=== PATIENT | female | born 1940 | race African-American/Black ===

== ENCOUNTER 2017-01-01 21:22 | Emergency (ER) | payer OTHER ==
[~2017-01-01] VITALS: Ht 162.6 cm; Wt 65.8 kg
--- NOTE | ~2017-01-01 | EKG ---
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 : 1940 Requested By: Alexandru Randall Order Number: [id number] MD: Anjum Interiano Measurements Intervals [place] Rate: 75 P: 60 RI: 141 QRS: 21 QRSD: 107 T: 47 QT: 393 QTc: 439 Interpretive Statements Sinus rhythm RSR' in V1 or V2, right VCD Artifact in lead(s) I,II,III,aVR,aVL,aVF Compared to ECG 01/01/2017 21:24:28 Left bundle branch block is no longer present Premature ventricular complexes are no longer present Electronically Signed On 01-03-2017 7:16:32 CDT by Anjum Interiano [email or web address] <ELECTRONICALLY SIGNED> By: Anjum Interiano MD, [facility] 01/03/17 0716 41 41 Anjum Interiano MD, [facility] /EPI
--- NOTE | ~2017-01-01 | EKG ---
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 : 1940 Requested By: Alexandru Randall Order Number: [id number] MD: Aramis Shay Measurements Intervals [place] Rate: 90 P: 80 UT: 132 QRS: -13 QRSD: 136 T: 60 QT: 403 QTc: 493 Interpretive Statements Sinus rhythm Multiple ventricular premature complexes Biatrial enlargement Left bundle branch block Baseline wander in lead(s) V2 No previous ECG available for comparison Electronically Signed On 01-02-2017 14:04:44 CDT by Aramis Shay [email or web address] <ELECTRONICALLY SIGNED> By: Aramis Shay MD 01/02/17 1404 23 23 Aramis Shay MD /MICHAEL
[2017-01-01] MEDS ORDERED: CATAPRES0.2 MG PO (21:25)
[2017-01-01] MEDS ORDERED: COZAAR 50 MG TA50 M2 PO (21:26)
[2017-01-01] MEDS ORDERED: ESTRADIOL 1 MG T1 M1 PO (21:26)
[2017-01-01 21:59] LABS: ABSOLUTE NEUTROPHILS 3.7 thou/uL (1.4-8.2); BASOPHILS 0.4 % (0.0-2.0); EOSINOPHILS 2.4 % (0.0-3.0); HEMATOCRIT 38.1 % (37.0-47.0); HEMOGLOBIN 13.2 gm/dL (12.0-15.0); LYMPHOCYTES 28.3 % (24.0-44.0); MCH 29.4 pg (26.0-34.0); MCHC 34.7 g/dL (28.0-37.0); MCV 84.8 fL (80.0-100.0); MONOCYTES 8.3 % (1.0-8.0); PLATELET COUNT 250 thou/uL (150-400); POLYS 60.6 % (36.0-66.0); RBC 4.49 mil/uL (4.20-5.00); RDW 14.3 % (10.5-14.5); WBC 6.1 thou/uL (4.0-11.0)
[2017-01-01 22:01] LABS: MANUAL DIFF NO
[2017-01-01 22:06] LABS: ANION GAP 4 mmol/L (7-16); BUN 20 mg/dL (7-18); CALCIUM 9.1 mg/dL (8.5-10.1); CHLORIDE 104 mmol/L (98-107); CO2 29 mmol/L (21-32); GLUCOSE 106 mg/dL (74-106); POTASSIUM 3.8 mmol/L (3.5-5.1); SODIUM 137 mmol/L (136-145)
[2017-01-01 22:14] LABS: TROPONIN-I < 0.04 ng/mL (<0.04-0.07)
[2017-01-01 23:20] VITALS: BP 152/65
== END 2017-01-01 23:21 | disposition home or self-care (01) ==
LOC: ER 21:22
PROVIDERS: Nurse Practitioner
DX: I10 Essential (primary) hypertension (principal); Z90.710 Acquired absence of both cervix and uterus

== ENCOUNTER → 2017-04-06 | Outpatient (CLI) | payer OTHER ==
[~2017-04-06] MED LIST: CATAPRES0.2 MG PO; COZAAR 50 MG TA50 M2 PO; ESTRADIOL 1 MG T1 M1 PO; HYDRALAZINE 2525 MG PO; METOPROLOL TART25 MG PO; XANAX 0.5 MG0.5 MG PO
--- NOTE | ~2017-04-06 | 2DMMODE ---
[facility] [address] [place] [address] 2 D/M-MODE ECHOCARDIOGRAM Name: ESAU PINEDO Room #: REG Veronica#: [id number] Admission: 04/06/17 Attend Phys: Peter Wilkins Discharge: Date of : 40 Date of Service: 04/06/17 0854 Report #: [id number] THIS REPORT FOR: //name// APPROVED REPORT Study performed: 04/06/2017 08:13:08 EXAM: Comprehensive 2D, Doppler, and color-flow Echocardiogram Patient Location: Out-Patient Room #: Echo lab Status: routine BSA: 1.69 HR: 61 bpm BP: 136/78 mmHg Other Information Study Quality: Good Indications Palpitations Hypertension/HDD 2D Dimensions RVDd: 37.65 mm LVEF(%): 57.52 (>50%) IVSd: 7.11 (7-11mm) LVOT Diam: 18.55 (18-24mm) LVDd: 39.50 mm PWd: 8.13 (7-11mm) Ascending Ao: 27.24 (22-36mm) LVDs: 27.73 (25-40mm) Aortic Root: 23.66 mm IVC: 17.00 mm Farooq's LVEF: 57.52 % Volumes Left Atrial Volume (Systole) Single Plane 4CH: 27.79 mL Single Plane 2CH: 51.71 mL LA ESV Index: 25.00 mL/m2 Aortic Valve AoV Peak Lex.: 1.46 m/s AO Peak Gr.: 8.54 mmHg LVOT Max P.68 mmHg LVOT Max V: 1.08 m/s VLAD Vmax: 2.00 cm2 Mitral Valve E/A Ratio: 1.1 MV Decel. Time: 224.84 ms [facility] [place] [address] 2 D/M-MODE ECHOCARDIOGRAM Name: ESAU PINEDO Room #: [id number] Admission: 04/06/17 Attend Phys: Peter Wilkins Discharge: Date of : 40 Date of Service: 04/06/17 0854 Report #: [id number] MV E Max Lex.: 1.00 m/s MV A Lex.: 0.94 m/s MV PHT: 65.20 ms IVRT: 83.04 ms Pulmonary Valve PV Peak Lex.: 0.93 m/s PV Peak Gr.: 3.50 mmHg Pulmonary Vein P Vein S: 0.55 m/s P Vein A: 0.28 m/s P Vein D: 0.38 m/s P Vein A Dur.: 110.7 msec P Vein S/D Ratio: 1.45 Tricuspid Valve TR Peak Lex.: 3.05 m/s TR Peak Gr.: 37.30 mmHg PA Pressure: 42.00 mmHg Left Ventricle The left ventricle is normal size. There is normal LV segmental wall motion. There is normal left ventricular wall thickness. The left ventricular systolic function is normal. The left ventricular ejection fraction is within the normal range. LVEF is 55-60%. Grade II - pseudonormal filling dynamics. Right Ventricle The right ventricle is normal size. The right ventricular systolic function is normal. Atria The left atrium size is normal. The right atrium size is normal. Aortic Valve The aortic valve is normal in structure. No aortic regurgitation is present. There is no aortic valvular stenosis. Mitral Valve The mitral valve is normal in structure. Mild mitral regurgitation. No evidence of mitral valve stenosis. Tricuspid Valve The tricuspid valve is normal in structure. There is mild tricuspid regurgitation. The right atrial pressure is estimated at 42 mmHg. Pulmonic Valve [address] [address] 2 D/M-MODE ECHOCARDIOGRAM Name: ESAU PINEDOE Room #: REG [facility]#: [id number] Admission: 04/06/17 Attend Phys: Peter Wilkins Discharge: Date of : 40 Date of Service: 04/06/17 0854 Report #: [id number] The pulmonary valve is normal in structure. There is no pulmonic valvular regurgitation. Great Vessels The aortic root is normal in size. IVC is normal in size and collapses >50% with inspiration. Pericardium There is no pericardial effusion. <Conclusion> The left ventricular systolic function is normal. There is normal LV segmental wall motion. LVEF is 55-60%. Grade II diastolic dysfunction The aortic valve is normal in structure. No aortic valvular stenosis or insufficiency The mitral valve is normal in structure. Mild mitral regurgitation. There is mild tricuspid regurgitation. The right atrial pressure is estimated at 42 mmHg. There is no pericardial effusion. <ELECTRONICALLY SIGNED> By: Anjum Interiano MD, FACC 04/06/1754 3 3 Anjum Interiano MD, FACC /INF
== END ==
LOC: NUC 07:37
DX: I08.1 Rheumatic disorders of both mitral and tricuspid valves (principal); I10 Essential (primary) hypertension; I44.7 Left bundle-branch block, unspecified; Z87.898 Personal history of other specified conditions

== ENCOUNTER → 2019-08-23 | Outpatient (CLI) | payer OTHER | LOC: SJCVC 10:43 | PROVIDERS: ATTEND Internal Medicine | DX: I10 Essential (primary) hypertension (principal); F41.9 Anxiety disorder, unspecified; G47.00 Insomnia, unspecified; R00.2 Palpitations; E78.5 Hyperlipidemia, unspecified; M19.90 Unspecified osteoarthritis, unspecified site; Z82.49 Family history of ischemic heart disease and other diseases of the circulatory system; Z79.899 Other long term (current) drug therapy ==

== ENCOUNTER → 2019-09-30 | Outpatient (CLI) | payer OTHER | LOC: SJCVC 10:36 | PROVIDERS: ATTEND Internal Medicine | DX: R06.09 Other forms of dyspnea (principal); I10 Essential (primary) hypertension; E78.5 Hyperlipidemia, unspecified; M19.90 Unspecified osteoarthritis, unspecified site; Z79.899 Other long term (current) drug therapy; Z82.49 Family history of ischemic heart disease and other diseases of the circulatory system ==

== ENCOUNTER → 2019-10-07 | Outpatient (CLI) | payer OTHER | LOC: SJCVCIMAG 10:24 | PROVIDERS: ATTEND Internal Medicine | DX: I08.1 Rheumatic disorders of both mitral and tricuspid valves (principal); I10 Essential (primary) hypertension; E78.5 Hyperlipidemia, unspecified ==

== ENCOUNTER → 2019-10-17 | Outpatient (CLI) | payer OTHER | LOC: SJCVCIMAG 11:01 | PROVIDERS: ATTEND Internal Medicine | DX: R06.00 Dyspnea, unspecified (principal); R42 Dizziness and giddiness; R06.02 Shortness of breath; E78.5 Hyperlipidemia, unspecified; I10 Essential (primary) hypertension; Z79.899 Other long term (current) drug therapy ==

== ENCOUNTER → 2019-10-29 | Outpatient (CLI) | payer OTHER | LOC: SJCVC 10:36 | DX: R06.09 Other forms of dyspnea (principal); R53.83 Other fatigue; I10 Essential (primary) hypertension; R51 Headache; Z79.899 Other long term (current) drug therapy ==

== ENCOUNTER → 2019-11-19 | Outpatient (CLI) | payer OTHER | LOC: SJCVC 16:31 | PROVIDERS: ATTEND Internal Medicine | DX: R07.9 Chest pain, unspecified (principal); R06.09 Other forms of dyspnea; I10 Essential (primary) hypertension; E78.5 Hyperlipidemia, unspecified; G47.00 Insomnia, unspecified; Z79.899 Other long term (current) drug therapy ==

== ENCOUNTER → 2020-07-21 | Outpatient (CLI) | payer OTHER ==
[~2020-07-21] MED LIST changes: +ADALAT CC30 MG PO; +IMDUR 30 MG TAB30 M1 PO; +ORADENT 0.1% DEN5 G1 TOP; +TOPROL XL25 MG PO; +ZOCOR40 MG PO
== END ==
LOC: SJCVC 10:03
PROVIDERS: ATTEND Internal Medicine
DX: R07.9 Chest pain, unspecified (principal); I10 Essential (primary) hypertension; R00.2 Palpitations; E78.5 Hyperlipidemia, unspecified; Z79.899 Other long term (current) drug therapy; F41.9 Anxiety disorder, unspecified; R51.9 Headache, unspecified; R42 Dizziness and giddiness; M19.90 Unspecified osteoarthritis, unspecified site

== ENCOUNTER → 2020-07-29 | Outpatient (CLI) | payer OTHER ==
[~2020-07-29] VITALS: Ht 162.6 cm; Wt 68.0 kg
[2020-07-29 10:21] VITALS: BP 132/56
[2020-07-29 11:00] LABS: ABSOLUTE NEUTROPHILS 1.6 thou/uL (1.4-8.2); BASOPHILS 0.4 % (0.0-2.0); EOSINOPHILS 2.1 % (0.0-3.0); HEMATOCRIT 37.8 % (37.0-47.0); HEMOGLOBIN 12.6 gm/dL (12.0-15.0); LYMPHOCYTES 37.5 % (24.0-44.0); MCH 29.7 pg (26.0-34.0); MCHC 33.5 g/dL (28.0-37.0); MCV 88.7 fL (80.0-100.0); MONOCYTES 13.4 % (1.0-8.0); PLATELET COUNT 227 thou/uL (150-400); POLYS 46.6 % (36.0-66.0); RBC 4.26 mil/uL (4.20-5.00); RDW 14.1 % (10.5-14.5); WBC 3.5 thou/uL (4.0-11.0)
[2020-07-29 11:04] LABS: CALCIUM 8.8 mg/dL (8.5-10.1); POTASSIUM 4.1 mmol/L (3.5-5.1)
--- NOTE | 2020-08-05 22:53 | CATHLAB ---
[facility] [place] [address] [place] [address] INVASIVE PROCEDURE REPORT Name: ESAU PINEDO Room #: REG GAURAV SanchezTamyErickaTamy#: [id number] Admission: 07/29/20 Attend Phys: Peter Spears Discharge: Date of : 40 Report #: [id number] THIS REPORT FOR: cc: Robbin Griffin MD, Michael D. MD Lammoglia, Francisco J. MD ~ APPROVED REPORT Study performed: 07/29/2020 11:01:59 Patient Details Patient Status: Out-Patient Room #: The patient is a 80 year-old female Event Personnel Peter Spears Cut Out And Marking Machine Operator, Sharon Key RN RN, Nik Gutierrez RTR Kristal Rosado Nancy RTR, PROCEDURES NURSE Monitor Procedures Performed Art Access - R femoral artery* Left Heart Cath w/or w/o Coronaries [id number] [facility] [address] Initial Mod Sed Same Phys/QHP Gr 906486 Hemostasis with Manual pressure 07570 Mod Sed Same Phys/QHP 957641, supervision of conscous sedation Indication Positive stress test Procedure Narrative The Right Groin^ was infiltrated with 1% Lidocaine subcutaneous anesthesia. A PINNACLE 4FR Sheath #[id number] sheath was inserted into the RFA^. Coronary angiography was performed using coronary diagnostic catheters. The right coronary system was accessed and visualized with a JR4 catheter. The left coronary system was accessed and visualized with a JL4 catheter. The left ventricle was accessed and visualized with a ANGLED PIGTAIL catheter. Left ventricular/Aortic Valve gradient assessed via catheter pullback. Hemostasis was obtained with manual pressure following sheath removal without any complications. The patient tolerated the procedure well and there were no complications associated with the procedure. There was no hematoma. Intraoperative Conscious Sedation Sedation start time: 11:27 Case end Time: [facility] [address] [place] [address] INVASIVE PROCEDURE REPORT Name: ESAU PINEDO Room #: REG TRE Martin#: [id number] Admission: 07/29/20 Attend Phys: Peter Wilkins Discharge: Date of : 40 Report #: [id number] 11:56 Versed 2 mg Fluoro Time: 2.90 minutes Dose: DAP 2331.00 cGycm2 588 mGy Contrast Type and Amount: Omnipaque 30 ml Coronary Angiography The patient's coronary anatomy is right dominant. Diagnostic Cath Left Main Moderate caliber vessel of normal origin bifurcates into left anterior descending and left circumflex arteries. The is a proximal tapering but no flow limiting lesions. LAD Moderate caliber type III vessel proceeding in the anterior interventricular sulcus giving rise to septal and diagonal branches.there are mild luminal irregularities but no high grade lesions.there is an eccentric lesion in the mid portion that appears to be 30-40% Diagonal 1 small caliber vessel coursing along the anterolateral wall of the left ventricle free of high grade lesions Diagonal 2 small insignificant caliber vessel Circumflex large caliber nondominant vessel which proceeds in the av groove giving rise to a large multibifurcating first marginal. the lcx proper then proceed posteriorly and terminates as a small vessel in the posterior portion of the ventricle OM1 large caliber with multiple branches and quite tortuous no high grade lesions noted Right Coronary moderate caliber normal origin free of high grade lesions Left Ventriculography Left Ventriculography was not performed. Hemodynamics The aortic pressure is 126/57 mmHg with a mean of 85 mmHg. The left ventricular pressure is 125/7 mmHg with a mean of mmHg. The left ventricular end diastolic pressure is 11 mmHg. Conclusion 1. Coronary artery disease mild to moderate single vessel involving mid lad 2. Normal hemodynamics Recommendations [facility] [address] [place] [address] INVASIVE PROCEDURE REPORT Name: ESAU PINEDO Room #: REG [facility]#: [id number] Admission: 07/29/20 Attend Phys: Peter Wilkins Discharge: Date of : 40 Report #: [id number] Cardiac Risk Reduction Program Medical Therapy <ELECTRONICALLY SIGNED> By: Peter Spears MD 08/05/202251 51 2252 Peter Spears MD /INF
== END | disposition home or self-care (01) ==
LOC: CATH 08:10
PROVIDERS: ATTEND Internal Medicine
DX: R94.39 Abnormal result of other cardiovascular function study (principal); I25.10 Atherosclerotic heart disease of native coronary artery without angina pectoris; R07.9 Chest pain, unspecified; I10 Essential (primary) hypertension; E78.5 Hyperlipidemia, unspecified; F41.9 Anxiety disorder, unspecified; Z98.890 Other specified postprocedural states; Z79.899 Other long term (current) drug therapy; Z90.710 Acquired absence of both cervix and uterus; Z82.49 Family history of ischemic heart disease and other diseases of the circulatory system